=== PATIENT | female | born 1940 | race Caucasian/White ===

== ENCOUNTER 2017-07-27 13:03 | Emergency (ER) | payer OTHER ==
[2017-07-27 13:31] VITALS: BMI 25.8
[2017-07-27] MEDS ORDERED: SODIUM CHLORIDE 1,000 ML IV STA (14:16)
[2017-07-27 14:43] LABS: BASOPHIL 0.7 % (0-2.0); EOSINOPHIL 4.4 % (0-4.5); MCH 28.4 pg (25.7-33.7); MCHC 33.3 g/dl (32.0-36.0); MEAN CELL VOLUME 85.4 fl (80-96); MEAN PLT VOLUME 8.5 fl (7.5-11.1); NEUTROPHILS 67.7 % (42.8-82.8); PLATELET COUNT 200 K/MM3 (134-434); RDW 14.9 % (11.6-15.6); WHITE BLOOD COUNT 7.9 K/mm3 (4.0-10.0)
--- NOTE | 2017-07-27 14:57 | PDOC ---
History of Present Illness - General Chief Complaint: Diarrhea Stated Complaint: DIARRHEA Time Seen by Provider: 07/27/17 13:46 History Source: Patient Exam Limitations: No Limitations - History of Present Illness Travel History: No Initial Comments: 07/27/17 14:52 77-year-old female presents to the ED with complaints of diarrhea intermittently for the past week associated with slight abdominal cramping worsened with bowel movements. Patient denies fever, chills but states generalized weakness. Patient denies change in appetite, urinary complaints, abdominal distention or decreased flatulence. Patient states history of colitis and is followed by Dr. Kidd but did not contact him and decided come to the ER instead. Timing/Duration: reports: intermittent Quality: reports: mild, cramping Abdominal Pain Onset Location: reports: periumbilical Pain Radiation: reports: no radiation Activities at Onset: reports: none Aggravating Factors: improves with: Defecation Alleviating Factors: improves with: None Past History - Travel Traveled outside of the country in the last 30 days: No - Past Medical History Allergies/Adverse Reactions: Allergies Allergy/AdvReac Type Severity Reaction Status Date / Time No Known Allergies Allergy Verified 07/27/17 13:25 Home Medications: Ambulatory Orders Atorvastatin Ca [Lipitor] 10 mg PO HS #1 tablet 10/12/13 Ramipril [Altace] 10 mg PO DAILY #1 capsule 10/12/13 Aspirin [ASA -] 81 mg PO DAILY 06/25/16 Triamterene/Hydrochlorothiazid [Triamterene-Hctz 37.5-25 mg Tb] 1 each PO DAILY 06/26/16 Ciprofloxacin HCl [Cipro] 500 mg PO BID #14 tablet 07/27/17 Diltiazem HCl [Cartia Xt] 300 mg PO DAILY 07/27/17 Metronidazole [Flagyl -] 500 mg PO DAILY #21 tablet 07/27/17 Ranitidine HCl [Zantac] 150 mg PO BID 07/27/17 Anemia: No Asthma: No Cancer: No Cardiac Disorders: No CVA: No COPD: Yes CHF: No Dementia: No Diabetes: No GI Disorders: No Disorders: No HTN: Yes Hypercholesterolemia: Yes Liver Disease: No Seizures: No Thyroid Disease: No - Surgical History Abdominal Surgery: No Appendectomy: No Cardiac Surgery: No Cholecystectomy: No Lung Surgery: No Neurologic Surgery: No Orthopedic Surgery: No - Immunization History Immunization Up to Date: No - Psycho/Social/Smoking Cessation Hx Anxiety: No Suicidal Ideation: No Smoking Status: Yes Smoking History: Former smoker Have you smoked in the past 12 months: No Number of Cigarettes Smoked Daily: 0 If you are a former smoker, when did you quit?: 2013 Information on smoking cessation initiated: No 'Breaking Loose' booklet given: 10/11/13 Hx Alcohol Use: No Drug/Substance Use Hx: No Substance Use Type: None Hx Substance Use Treatment: No Patient Lives Alone: No Review of Systems - Review of Systems Able to Perform ROS?: No Constitutional: No: Symptoms Reported HEENTM: No: Symptoms Reported Respiratory: No: Symptoms reported Cardiac (ROS): No: Symptoms Reported ABD/GI: Yes: Diarrhea, Abdominal cramping. No: Nausea, Poor Appetite, Poor Fluid Intake, Vomiting : No: Symptoms Reported Musculoskeletal: No: Symptoms Reported Integumentary: No: Symptoms Reported Neurological: No: Symptoms reported Hematologic/Lymphatic: No: Symptoms Reported *Physical Exam - Vital Signs Last Vital Signs Temp Pulse Resp BP Pulse Ox 97.8 F 84 20 147/63 96 07/27/17 13:12 07/27/17 13:12 07/27/17 13:12 07/27/17 13:12 07/27/17 13:12 - Physical Exam General Appearance: Yes: Nourished, Appropriately Dressed. No: Apparent Distress Respiratory/Chest: positive: Lungs Clear, Normal Breath Sounds. negative: Respiratory Distress, Accessory Muscle Use Cardiovascular: positive: Regular Rhythm, Regular Rate. negative: Murmur Gastrointestinal/Abdominal: positive: Normal Bowel Sounds, Soft. negative: Distended, Guarding, Rebound, Tenderness, Mass Integumentary: positive: Normal Color, Warm, Moist Neurologic: positive: Motor Strength 5/5 (ambulatory) ED Treatment Course - LABORATORY CBC & Chemistry Diagram: 07/27/17 14:24 07/27/17 14:24 - RADIOLOGY Radiology Studies Ordered: Category Date Time Status ABDOMEN & PELVIS CT W/O CONTR [CT] Stat CT Scan 07/27/17 14:16 Ordered Medical Decision Making - Medical Decision Making 07/27/17 15:02 Patient history of colitis complaining of diarrhea and lower periumbilical pain for the past week. Patient examined had no acute findings. Patient normal vital signs here. Patient ordered for labs, IV fluids urine and abdominal CT with by mouth contrast. 07/27/17 17:23 Laboratory Tests 07/27/17 16:50 Urine Blood 1+ H Ur Leukocyte Esterase Trace 07/27/17 17:24 Laboratory Tests 07/27/17 07/27/17 07/27/17 14:24 14:24 14:24 WBC 7.9 Hgb 11.3 Hct 33.9 Plt Count 200 Neutrophils % 67.7 Monocytes % 10.4 H Sodium 138 Potassium 3.7 Chloride 102 Carbon Dioxide 26 Anion Gap 10 BUN 37 H D Creatinine 1.6 H D Random Glucose 93 D Lactic Acid 1.4 Magnesium 1.9 AST 14 L D ALT 19 Total Protein 7.2 D Albumin 3.6 D Lipase 400 H Ordered for gallbladder ultrasound. Patient had no right upper quad tenderness 07/27/17 18:[address] shows early acute sigmoid diverticulitis versus chronic diverticulitis. There is no abscess or free air seen. Patient will be ordered for Flagyl and Cipro. Patient's GI is Dr. Kidd. *DC/Admit/Observation/Transfer Diagnosis at time of Disposition: Diverticulitis - Discharge Dispostion Disposition: HOME - Prescriptions Prescriptions: Ciprofloxacin HCl [Cipro] 500 mg PO BID #14 tablet Metronidazole [Flagyl -] 500 mg PO DAILY #21 tablet - Referrals Referrals: Juan Kidd DO [Staff Physician] - Enrique Bui MD [Staff Physician] - Precious Coates MD [Primary Care Provider] - - Patient Instructions Printed Discharge Instructions: DI for Diverticulitis, DI for Aortic Aneurysm Additional Instructions: Please take medications as prescribed. You MUST follow up with Dr. Coates in the office THIS WEEK; I have spoken to him and he is expecting to see you. You also MUST make an appointment with Dr. Enrique Bui for further evaluation and management of your aortic aneurysm. You should also follow up with Dr. Kidd within the next few weeks. If you experience ANY severe abdominal pain, especially pain that radiates to your back; very high blood pressure; chest pain; shortness of breath, fever, chills, persistent vomiting, or any new or worsening symptoms, please return to the ER IMMEDIATELY.
[2017-07-27 15:07] LABS: ALBUMIN 3.6 g/dl (3.4-5.0); ALK PHOS 70 U/L (45-117); ANION GAP 10 (8-16); BILIRUBIN,TOTAL 0.8 mg/dL (0.2-1.0); CALCIUM 9.6 mg/dL (8.5-10.1); CO2 26 mmol/L (21-32); CREATININE 1.6 mg/dL (0.55-1.02); GLUCOSE,RANDOM 93 mg/dL (74-106); MAGNESIUM 1.9 mg/dL (1.8-2.4); SGOT/AST 14 U/L (15-37); SGPT/ALT 19 U/L (12-78); TOT PROT 7.2 g/dl (6.4-8.2)
[2017-07-27 17:12] LABS: URINE APPEARANCE CLEAR; URINE BILIRUBIN NEGATIVE (NEGATIVE); URINE BLOOD 1+ (NEGATIVE); URINE COLOR LTYELLOW; URINE GLUCOSE (UA) NEGATIVE (NEGATIVE); URINE KETONE NEGATIVE (NEGATIVE); URINE LEUK ESTERASE TRACE (NEGATIVE); URINE NITRITE NEGATIVE (NEGATIVE); URINE PROTEIN NEGATIVE (NEGATIVE); URINE UROBILINOGEN NEGATIVE mg/dL (0.2-1.0)
[2017-07-27 17:16] LABS: URINE BACTERIA RARE /hpf (NONE SEEN); URINE MUCUS RARE; URINE RBC <1 /hpf (0-3); URINE WBC 5 /hpf (3-5)
[2017-07-27 18:05] VITALS: PULSE 68
--- NOTE | 2017-07-27 19:03 | PDOC ---
*Physical Exam - Vital Signs Last Vital Signs Temp Pulse Resp BP Pulse Ox 98.4 F 68 18 138/61 95 07/27/17 18:04 07/27/17 18:04 07/27/17 18:04 07/27/17 18:04 07/27/17 18:04 - Physical Exam Comments: 07/27/17 18:57 Sign-out received from outgoing ER provider Adriana. Pt interviewed and examined. Ancillary studies reviewed. Awaiting ultrasound r/o sherice. Ultrasound results: Early acute sigmoid diverticulitis versus chronic diverticulitis. No abscess or free air. Appendix is normal. 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 Read by Noemi Rebolledo DO. Flagyl and Cipro rx sent to pharm. Discussed case with patient's PCP Dr. Coates; who recommends close follow up in office this week as well as close follow up with vascular MD Hao. Referral provided. Discussed findings with patient. Advised patient to f/u with PCP, Dr. Montesinos , and Dr. Bui. Patient verbalized understanding and agrees to plan. ED Treatment Course - LABORATORY CBC & Chemistry Diagram: 07/27/17 14:24 07/27/17 14:24 - ADDITIONAL ORDERS Additional order review: Laboratory Results 07/27/17 07/27/17 07/27/17 16:50 14:24 14:24 Sodium 138 Potassium 3.7 Chloride 102 Carbon Dioxide 26 Anion Gap 10 BUN 37 H D Creatinine 1.6 H D Creat Clearance w eGFR 31.26 Random Glucose 93 D Lactic Acid 1.4 Calcium 9.6 Magnesium 1.9 Total Bilirubin 0.8 D AST 14 L D ALT 19 Alkaline Phosphatase 70 D Total Protein 7.2 D Albumin 3.6 D Lipase 400 H Urine Color Ltyellow Urine Appearance Clear Urine pH 5.0 Urine Protein Negative Urine Glucose (UA) Negative Urine Ketones Negative Urine Blood 1+ H Urine Nitrite Negative Urine Bilirubin Negative Urine Urobilinogen Negative Ur Leukocyte Esterase Trace Urine RBC <1 Urine WBC 5 Ur Epithelial Cells Rare Urine Bacteria Rare Urine Mucus Rare 07/27/17 14:24 RBC 3.97 MCV 85.4 MCHC 33.3 RDW 14.9 MPV 8.5 Neutrophils % 67.7 Lymphocytes % 16.8 Monocytes % 10.4 H Eosinophils % 4.4 Basophils % 0.7 - Medications Given in the ED: ED Medications Discontinued Medications Generic Name Dose Route Start Last Admin Trade Name Tracy PRN Reason Stop Dose Admin Sodium Chloride 1,000 mls @ 1,000 mls/hr 07/27/17 14:16 07/27/17 14:23 Normal Saline - IV 07/27/17 15:15 1,000 mls/hr ASDIR STA Administration *DC/Admit/Observation/Transfer Diagnosis at time of Disposition: Diverticulitis Qualifiers: Diverticulitis site: large intestine Diverticulitis bleeding: without bleeding Diverticulitis complication: without perforation or abscess Qualified Code(s): K57.32 - Diverticulitis of large intestine without perforation or abscess without bleeding - Discharge Dispostion Disposition: HOME Condition at time of disposition: Stable Admit: No - Prescriptions Prescriptions: Ciprofloxacin HCl [Cipro] 500 mg PO BID #14 tablet Metronidazole [Flagyl -] 500 mg PO DAILY #21 tablet - Referrals Referrals: Precious Coates MD [Primary Care Provider] - Enrique Bui MD [Staff Physician] - Juan Montesinos DO [Staff Physician] - - Patient Instructions Printed Discharge Instructions: DI for Diverticulitis, DI for Aortic Aneurysm Additional Instructions: Please take medications as prescribed. You MUST follow up with Dr. Coates in the office THIS WEEK; I have spoken to him and he is expecting to see you. You also MUST make an appointment with Dr. Enrique Bui for further evaluation and management of your aortic aneurysm. You should also follow up with Dr. Montesinos within the next few weeks. If you experience ANY severe abdominal pain, especially pain that radiates to your back; very high blood pressure; chest pain; shortness of breath, fever, chills, persistent vomiting, or any new or worsening symptoms, please return to the ER IMMEDIATELY.
[2017-07-27 20:11] VITALS: BP 136/68; TEMP 98.2
--- NOTE | 2017-07-28 18:01 | EKG ---
Test Reason : Blood Pressure : / mmHG Vent. Rate : 067 BPM Atrial Rate : 067 BPM P-R Int : 178 ms QRS Dur : 076 ms QT Int : 426 ms P-R-T Axes : 110 005 053 degrees QTc Int : 450 ms POOR DATA QUALITY, INTERPRETATION MAY BE ADVERSELY AFFECTED SINUS RHYTHM WITH OCCASIONAL PREMATURE VENTRICULAR COMPLEXES NONSPECIFIC ST AND T WAVE ABNORMALITY ABNORMAL ECG WHEN COMPARED WITH ECG OF 05-MAY-2016 09:08, [place] INTERVAL HAS DECREASED REPEAT EKG IF CLINICALLY INDICATED Confirmed by RIZWAN LLANOS MD ([id number]) on 07/28/2017 6:00:36 PM Referred By: Confirmed By:RIZWAN LLANOS MD
== END 2017-07-27 20:11 | disposition home or self-care (01) ==
LOC: JER 13:03
PROC: 3E0337Z Introduction of Electrolytic and Water Balance Substance into Peripheral Vein, Percutaneous Approach (ICD-10-PCS; principal; 2017-07-27)
DX: K57.32 Diverticulitis of large intestine without perforation or abscess without bleeding (principal); I10 Essential (primary) hypertension; E78.00 Pure hypercholesterolemia, unspecified
CPT/HCPCS: 36415; 74176-TC; 76705-TC; 80053; 81003; 81015; 83605; 83690; 83735; 85025; 93005; 93010; 96360; 99283-25

== ENCOUNTER 2018-06-04 11:38 | Emergency (ER) | payer OTHER ==
[2018-06-04 11:58] VITALS: BP 159/67; PULSE 65; TEMP 98.4; BMI 27.6
--- NOTE | 2018-06-04 12:09 | PDOC ---
Attending Attestation - Resident Resident Name: Cyndie Dubose - ED Attending Attestation I have performed the following: I have examined & evaluated the patient, The case was reviewed & discussed with the resident, I agree w/resident's findings & plan, Exceptions are as noted - HPI HPI: 78 yo F history HTN presents with fall this morning while walking her dog. She is unsure of what caused the fall, stating she may have tripped on something. Denies weakness, LH, SOB, cp. She admits to recent RANDOLPH that is new onset. She is able to walk 1/2 a block before she has to stop walking. She has noted recent swelling in her legs B/L. No fever, cp, cough. - Physicial Exam PE: GENERAL: Awake, alert, and fully oriented, in no acute distress HEAD: No signs of trauma EYES: PERRLA, EOMI, sclera anicteric, conjunctiva clear ENT: Auricles normal inspection, hearing grossly normal, nares patent, oropharynx clear without exudates. Moist mucosa NECK: Normal ROM, supple, no lymphadenopathy, JVD, or masses LUNGS: Breath sounds equal, clear to auscultation bilaterally. No wheezes, and no crackles HEART: Regular rate and rhythm, normal S1 and S2, no murmurs, rubs or gallops ABDOMEN: Soft, nontender, normoactive bowel sounds. No guarding, no rebound. No masses EXTREMITIES: Normal range of motion. 2+ pitting edema BLE to level of mid-louise. No clubbing or cyanosis. No cords, erythema, or tenderness NEUROLOGICAL: Cranial nerves II through XII grossly intact. Normal speech, normal gait. SKIN: Warm, Dry, normal turgor, no rashes. +2x2 cm skin abrasion to R anterior knee. - Medical Decision Making 06/04/18 12:59 Pt with signs of poss new onset CHF. Will obtain labs including trop and BNP. XR of knee. Poss admission depending on findings.
--- NOTE | 2018-06-04 12:25 | PDOC ---
History of Present Illness - General Chief Complaint: Edema Stated Complaint: edema/fall Time Seen by Provider: 06/04/18 12:05 - History of Present Illness Initial Comments: 06/04/18 12:23 78 year old female with a PMH of HTN and GERD presents to the ED c/o fall and B/ L LE swelling. Patient notes that she was walking her dog earlier today when she fell. Denies any pre-fall chest pain, shortness of breath palpitation. Daughter @ bedside notes B/L LE extremity swelling of unknown duration. Endorses RANDOLPH, but notes besides walking her dog 1 block daily she is fairly sedentary. Notes she follow with Dr. Precious Coates for primary care and has been evaluated by Dr. Velez for "things in my ears." Patient denies chest pain, shortness of breath, fever/chills. Patient denies abdominal pain, nausea/vomiting, diarrhea/constipation. NKDA Surgical: Cardiac stent (2011), hysterectomy Social: prior 50+ year h/o smoking, quit three years previous, denies alcohol, denies recreational drugs PMD: Dr. Precious Coates Past History - Past Medical History Allergies/Adverse Reactions: Allergies Allergy/AdvReac Type Severity Reaction Status Date / Time No Known Allergies Allergy Verified 06/04/18 11:58 Home Medications: Ambulatory Orders Atorvastatin Ca [Lipitor] 10 mg PO HS #1 tablet 10/12/13 Ramipril [Altace] 10 mg PO DAILY #1 capsule 10/12/13 Aspirin [ASA -] 81 mg PO DAILY 06/25/16 Triamterene/Hydrochlorothiazid [Triamterene-Hctz 37.5-25 mg Tb] 1 each PO DAILY 06/26/16 Ciprofloxacin HCl [Cipro] 500 mg PO BID #14 tablet 07/27/17 Diltiazem HCl [Cartia Xt] 300 mg PO DAILY 07/27/17 Ranitidine HCl [Zantac] 150 mg PO BID 07/27/17 metroNIDAZOLE [Flagyl -] 500 mg PO DAILY #21 tablet 07/27/17 Furosemide [Lasix -] 40 mg PO DAILY #7 tablet 06/04/18 Anemia: No Asthma: No Cancer: No Cardiac Disorders: No CVA: No COPD: Yes CHF: No Dementia: No Diabetes: No GI Disorders: No Disorders: No HTN: Yes Hypercholesterolemia: Yes Liver Disease: No Psychiatric Problems: Yes (depression) Seizures: No Thyroid Disease: No - Surgical History Abdominal Surgery: No Appendectomy: No Cardiac Surgery: No Cholecystectomy: No Lung Surgery: No Neurologic Surgery: No Orthopedic Surgery: No - Immunization History Immunization Up to Date: No - Suicide/Smoking/Psychosocial Hx Smoking Status: Yes Smoking History: Former smoker Have you smoked in the past 12 months: No Number of Cigarettes Smoked Daily: 0 If you are a former smoker, when did you quit?: 2016 Information on smoking cessation initiated: No 'Breaking Loose' booklet given: 10/11/13 Hx Alcohol Use: No Drug/Substance Use Hx: No Substance Use Type: None Hx Substance Use Treatment: No Review of Systems - Review of Systems Constitutional: No: Chills, Fever HEENTM: No: Eye Pain, Double Vision Respiratory: Yes: Shortness of Breath. No: Cough, SOB with Exertion, Stridor, Wheezing, Productive cough Cardiac (ROS): No: Chest Pain, Lightheadedness, Palpitations, Syncope ABD/GI: No: Constipated, Diarrhea, Nausea, Vomiting : No: Burning, Dysuria *Physical Exam - Vital Signs Last Vital Signs Temp Pulse Resp BP Pulse Ox 98.4 F 65 18 159/67 96 06/04/18 11:54 06/04/18 11:54 06/04/18 11:54 06/04/18 11:54 06/04/18 11:54 - Physical Exam General Appearance: Yes: Nourished, Appropriately Dressed HEENT: positive: EOMI, KYMBERLY. negative: TM Bulging, TM Dull, TM Erythema Neck: positive: Trachea midline, Supple Respiratory/Chest: positive: Lungs Clear, Normal Breath Sounds Cardiovascular: positive: Regular Rhythm, S1, S2 Vascular Pulses: Dorsalis-Pedis (R): 2+, Doralis-Pedis (L): 2+ Gastrointestinal/Abdominal: positive: Normal Bowel Sounds, Soft Musculoskeletal: negative: CVA Tenderness (R), CVA Tenderness (L) Extremity: positive: Normal Capillary Refill, Normal Inspection, Other (R tibial tuberosity TTP; superficial R patellar abrasion, 2+ DP pulse) Integumentary: positive: Normal Color, Dry, Warm Neurologic: positive: Fully Oriented, Alert ED Treatment Course - LABORATORY CBC & Chemistry Diagram: 06/04/18 13:45 06/04/18 13:45 Medical Decision Making - Medical Decision Making 06/04/18 14:58 78 year old female presents following a fall, no head trauma/LOC as well as B/L LE edema. History notable for RANDOLPH Unclear if fall mechanical etiology. C/o R knee pain. Will obtain basic labs, EKG, Troponin x1 to r/o cardiac or metabolic etiology of and R knee, R tib/fib XR as well as BNP to evaluate for new onset HF. 06/04/18 15:16 EKG shows HR 64, NSR, no TWI/ANTOINETTE/STD - non ischemic ECG. Troponin (-) x1. CBC , CMP ending. XR shows no tibial or patellar fracture, expected osteoporotic changes. BNP 551 - no previous BNP in EMR. Will discuss case w/PMD, Dr. Benji Coates for likely new onset HF. 06/04/18 15:21 Case d/w Dr. Coates - agrees w/ OTD of Lasik and will see patient in office as previously scheduled for 06/08. Requests Lasik 40 mg QD as outpatient. Patient and patient's family counseled on POC and discharged home with return precautions and instruction to f/u with PMD. I discussed the physical exam findings, ancillary test results and final diagnoses with the patient. I answered all of the patient's questions. The patient was satisfied with the care received and felt comfortable with the discharge plan and treatment plan. The patient will return to the Emergency Department with any new, persistent or worsening symptoms. *DC/Admit/Observation/Transfer Diagnosis at time of Disposition: Swelling of both lower extremities, Fall - Discharge Dispostion Disposition: HOME Condition at time of disposition: Good - Prescriptions Prescriptions: Furosemide [Lasix -] 40 mg PO DAILY #7 tablet - Referrals Referrals: Precious Coates MD [Primary Care Provider] - - Patient Instructions Printed Discharge Instructions: How to Prevent Falls Additional Instructions: Please keep your previously scheduled appointment with Dr. Coates. We have called a prescription to your pharmacy. It will make you urinate more than usual. Please take the pill once daily. Dr. Coates may increase the dose or change the medication. Return to the Emergency Department for any new/worsening/concerning symptoms. - Post Discharge Activity
[2018-06-04] MEDS ORDERED: BACITRACIN 0.9 GM PACKET ONE (12:47)
[2018-06-04 13:57] LABS: BASO % 0.8 % (0-2.0); EOS % 8.7 % (0-4.5); HEMATOCRIT 34.7 % (32.4-45.2); HEMOGLOBIN 11.5 GM/dL (10.7-15.3); LYMPH % 17.3 % (8-40); MCH 29.1 pg (25.7-33.7); MCHC 33.2 g/dl (32.0-36.0); MEAN CELL VOLUME 87.5 fl (80-96); MEAN PLT VOLUME 9.8 fl (7.5-11.1); MONO % 6.6 % (3.8-10.2); NEUT % 66.6 % (42.8-82.8); PLATELET COUNT 198 K/MM3 (134-434); RBC 3.97 M/mm3 (3.60-5.2); RDW 15.1 % (11.6-15.6); WHITE BLOOD COUNT 6.6 K/mm3 (4.0-10.0)
[2018-06-04 14:30] LABS: ALBUMIN 3.8 g/dl (3.4-5.0); ALK PHOS 73 U/L (45-117); ANION GAP 9 (8-16); BILIRUBIN,TOTAL 0.5 mg/dL (0.2-1.0); BLOOD UREA NITROGEN 29 mg/dL (7-18); CALCIUM 9.7 mg/dL (8.5-10.1); CHLORIDE 102 mmol/L (98-107); CO2 28 mmol/L (21-32); CREATININE 1.4 mg/dL (0.55-1.02); GLUCOSE,RANDOM 99 mg/dL (74-106); POTASSIUM 4.4 mmol/L (3.5-5.1); SGOT/AST 21 U/L (15-37); SGPT/ALT 21 U/L (12-78); SODIUM 139 mmol/L (136-145); TOT PROT 7.4 g/dl (6.4-8.2)
[2018-06-04] MEDS ORDERED: FUROSEMIDE 40 MG/4 ML INJECTABLE VIAL IVPUSH ONE (15:20)
[2018-06-04] MEDS ORDERED: FUROSEMIDE 40 MG/4 ML INJECTABLE VIAL ONE (15:51)
--- NOTE | 2018-06-07 20:27 | EKG ---
Test Reason : Blood Pressure : / mmHG Vent. Rate : 064 BPM Atrial Rate : 064 BPM P-R Int : 170 ms QRS Dur : 078 ms QT Int : 430 ms P-R-T Axes : 062 005 059 degrees QTc Int : 443 ms NORMAL SINUS RHYTHM NORMAL ECG WHEN COMPARED WITH ECG OF 27-JUL-2017 15:00, PREMATURE VENTRICULAR COMPLEXES ARE NO LONGER PRESENT Confirmed by MD THADDEUS, TIMOTHY ([id number]) on 06/07/2018 8:26:58 PM Referred By: Confirmed By:TIMOTHY TRAVIS MD
== END 2018-06-04 15:59 | disposition home or self-care (01) ==
LOC: JER 11:38
PROC: 3E033GC Introduction of Other Therapeutic Substance into Peripheral Vein, Percutaneous Approach (ICD-10-PCS; principal; 2018-06-04)
DX: S80.211A Abrasion, right knee, initial encounter (principal); M79.89 Other specified soft tissue disorders; W18.39XA Other fall on same level, initial encounter; Y93.K1 Activity, walking an animal; Y92.480 Sidewalk as the place of occurrence of the external cause; Y99.8 Other external cause status; I10 Essential (primary) hypertension; K21.9 Gastro-esophageal reflux disease without esophagitis; F32.9 Major depressive disorder, single episode, unspecified; E78.00 Pure hypercholesterolemia, unspecified; Z95.5 Presence of coronary angioplasty implant and graft
CPT/HCPCS: 36415; 71045-TC-FY; 73562-TC-RT-FY; 73590-TC-RT-FY; 80053; 82550; 83880; 84484; 85025; 93005; 93010; 96374; 99282-25

== ENCOUNTER 2018-12-19 18:50 | Inpatient (IN) | payer OTHER ==
--- NOTE | 2018-12-19 19:22 | PDOC ---
Attending Attestation - HPI HPI: This patient is a 78 year old female, with PMHx of HTN, hypercholesterolemia, prolapsed uterus, hysterectomy, stent in leg, COPD, GERD, and diverticulosis, who presents with abdominal pain, nausea, vomit, and diarrhea. Patient has been seen in our ER a few timees for similar symptoms of abdominal pain, diarrhea, and vomit. Patient states that since 6pm she has had 2 episodes of emesis and 1 episodee of loose stools. Patient states that she ate chicken for dinner, rest of the family had the same thing. Around 6pm is when he symptoms began. She felt flushed, off, and pts daughter felt like she looked pale so she called EMS. She reports feeling fine earlier in the day and had a normal BM earlier in the day as well. Patient's daughter reports that she had a stress test that was questionable and is scheduled for an angiogram. PCP: Precious Coates 12/19/18 22:08 Patient had episode of bloody diarrhea while in ER. - Physicial Exam PE: GENERAL: Awake, alert, and fully oriented, in no acute distress Afebrile. LUNGS: Breath sounds equal, clear to auscultation bilaterally. No wheezes, and no crackles HEART: Regular rate and rhythm, normal S1 and S2, no murmurs, rubs or gallops ABDOMEN: Soft, left sided tenderness, normoactive bowel sounds. No guarding, no rebound. No masses EXTREMITIES: Normal range of motion,moving all extremities. Pitting edema L>R. No clubbing or cyanosis. No cords, erythema, or tenderness NEUROLOGICAL: Cranial nerves II through XII grossly intact. Normal speech, normal gait SKIN: Warm, Dry, no rashes or lesions noted. <Angelica Petersen - Last Filed: 12/19/18 22:08> - Resident Resident Name: Leatha Boateng - ED Attending Attestation I have performed the following: I have examined & evaluated the patient, The case was reviewed & discussed with the resident, I agree w/resident's findings & plan - Medical Decision Making 12/19/18 23:38 Patient Name: NAILA ANGLIN THIS IS A PRELIMINARY REPORT FROM [facility] DATE OF SERVICE: 2018-12-19 22:18:28 IMAGES: [id number] EXAM: ABDOMEN \T\ PELVIS CT W/O CONTR HISTORY: Rule out colitis COMPARISON: None. FINDINGS: Lung bases are clear. The visualized cardiac chambers are normal size and configuration. 1.8 cm left adrenal nodule is noted. There is mild bilateral renal scarring without stones or hydronephrosis. Normal unenhanced liver, gallbladder, pancreas, spleen , right adrenal gland . There is a moderate size hiatal hernia. There is mild colonic inflammation extending from the mid transverse colon to the rectum which may be due to infection or inflammatory bowel disease. The bowel obstruction, abscess or free air. There is a 4.2 cm fusiform suprarenal and infrarenal aortic aneurysm, without evidence of leak . There is no significant retroperitoneal lymphadenopathy. The appendix is normal. Status post hysterectomy. Urinary bladder is unremarkable. There is no pelvic free fluid. No discrete pelvic lymphadenopathy is identified. IMPRESSION: Mild colitis of the distal half of the colon could be due to infection inflammatory bowel disease. 4.2 cm suprarenal and infrarenal abdominal aortic aneurysm without evidence of leak . 1.8 cm left adrenal nodule is nonspecific, possibly an adenoma, which can be followed up with nonemergent MRI. Mild bilateral renal scarring 12/20/18 01:43 Admitted for colitis <Mihaela Onofre - Last Filed: 12/20/18 01:44>
[2018-12-19] MEDS ORDERED: SODIUM CHLORIDE 0.9% 500 ML INFUS.BAG IV ONE (19:30)
--- NOTE | 2018-12-19 19:34 | PDOC ---
History of Present Illness - General Chief Complaint: Pain Stated Complaint: ABDOMINAL PAIN Time Seen by Provider: 12/19/18 19:05 - History of Present Illness Initial Comments: Mary Kiran is a 78yo woman with a PMH of HTN, GERD, COPD, diverticulosis (1x diverticulitis) who presents with acute onset of vomiting, diarrhea, and abdominal pain that started 1 hour before arrival in the ED. Ms Kiran reports that she was feeling well all day until dinner tonight. She had a normal bowel movement in the morning and was eating and drinking normally. She ate dinner without difficulty and shortly afterwards began to feel ill. She had an episode of loose stool and two episodes of emesis after dinner, starting around 6pm tonight. She additionally reports suprapubic cramping that started at the same time; she states that it feels like she might have another episode of diarrhea. Ms Kiran reports that she has been feeling well otherwise. She denies any SOB , chest pain, diaphoresis, or dizziness along with the episode. She has not had any recent fevers/chills, no sick contacts, no unusual foods, and no recent travel. Her daughters, present in the ED, ate the same food for dinner and are feeling well. She does endorse feeling flushed when she vomited, and her daughter noted that she looked pale at the time. Currently, she reports mild abdominal discomfort but feels better than earlier. Past History - Past Medical History Allergies/Adverse Reactions: Allergies Allergy/AdvReac Type Severity Reaction Status Date / Time No Known Allergies Allergy Verified 12/19/18 19:00 Home Medications: Ambulatory Orders Atorvastatin Ca [Lipitor] 10 mg PO HS #1 tablet 10/12/13 Ramipril [Altace] 10 mg PO DAILY #1 capsule 10/12/13 Aspirin [ASA -] 81 mg PO DAILY 06/25/16 Triamterene/Hydrochlorothiazid [Triamterene-Hctz 37.5-25 mg Tb] 1 each PO DAILY 06/26/16 Ciprofloxacin HCl [Cipro] 500 mg PO BID #14 tablet 07/27/17 Diltiazem HCl [Cartia Xt] 300 mg PO DAILY 07/27/17 Ranitidine HCl [Zantac] 150 mg PO BID 07/27/17 metroNIDAZOLE [Flagyl -] 500 mg PO DAILY #21 tablet 07/27/17 Furosemide [Lasix -] 40 mg PO DAILY #7 tablet 06/04/18 Anemia: No Asthma: No Cancer: No Cardiac Disorders: No CVA: No COPD: Yes CHF: No Dementia: No Diabetes: No GI Disorders: No Disorders: No HTN: Yes Hypercholesterolemia: Yes Liver Disease: No Psychiatric Problems: Yes (depression) Seizures: No Thyroid Disease: No - Surgical History Abdominal Surgery: No Appendectomy: No Cardiac Surgery: No Cholecystectomy: No Lung Surgery: No Neurologic Surgery: No Orthopedic Surgery: No - Immunization History Immunization Up to Date: No - Suicide/Smoking/Psychosocial Hx Smoking Status: Yes Smoking History: Never smoked Have you smoked in the past 12 months: No Number of Cigarettes Smoked Daily: 0 If you are a former smoker, when did you quit?: 2016 Information on smoking cessation initiated: No 'Breaking Loose' booklet given: 10/11/13 Hx Alcohol Use: No Drug/Substance Use Hx: No Substance Use Type: None Hx Substance Use Treatment: No Review of Systems - Review of Systems Comments:: General: No fevers, no chills, no weight or appetite change, no malaise HEENT: No changes in vision, no changes in hearing, no congestion, no sore throat CV: No chest pain, no palpitations, no LE edema Pulm: +chronic SOB, +h/o COPD GI: See HPI : No frequency, no urgency, no dysuria Musc: No back pain, no joint swelling, no recent injury Skin: No rash, no lesions, no erythema Endo: No excessive thirst, no heat/cold intolerance Heme: No unusual bruising or bleeding, no swollen glands Neuro: No syncope, no numbness/tingling, no focal weakness Vasc: No claudication Psych: No recent change in mood, no SI or HI *Physical Exam - Vital Signs Last Vital Signs Temp Pulse Resp BP Pulse Ox 97.6 F 60 18 122/55 L 96 12/19/18 18:55 12/19/18 18:55 12/19/18 18:55 12/19/18 18:55 12/19/18 18:55 - Physical Exam Comments: General: Comfortable, no acute distress HEENT: PERRL, EOMI, MMM, voice normal, normal neck ROM, no LAD Cards: RRR, no murmur appreciated Pulm: Comfortable on room air, mild diffuse wheezing b/l Abd: Soft, nondistended. Mild suprapubic tenderness. Ext: Atraumatic. 1+ b/l pitting LE edema. ROM intact. Strength 5/5 and equal bilaterally Vasc: Extremities WWP. Skin: Normal color, no rashes or lesions Neuro: A&Ox3, CN grossly intact, normal speech, motor/sensory grossly intact and symmetric Psych: Mood appropriate to situation Moderate Sedation - Procedure Monitoring Vital Signs: Procedure Monitoring Vital Signs Temperature 97.6 F 12/19/18 18:55 Pulse Rate 60 12/19/18 18:55 Respiratory Rate 18 12/19/18 18:55 Blood Pressure 122/55 L 12/19/18 18:55 O2 Sat by Pulse Oximetry (%) 96 12/19/18 18:55 ED Treatment Course - LABORATORY CBC & Chemistry Diagram: 12/19/18 19:56 12/19/18 19:56 Medical Decision Making - Medical Decision Making 12/19/18 19:33 Mary Kiran is a 78yo woman with a PMH of HTN, GERD, COPD, diverticulosis (1x diverticulitis) who presents with acute onset of suprapubic cramping, one episode of loose stool, and two episodes of vomiting starting at 6pm tonight. She was feeling well earlier in the day and started feeling ill after eating dinner. - Most likely viral, gastritis due to GERD, possibly influenza but less likely given lack of fever, sick contacts, respiratory symptoms. Given age and HTN, COPD should rule out ACS as a cause of vomiting and abdominal pain, though less likely as she has no chest pain or SOB. h/o biliary sludge, but no RUQ pain so unlikely - CBC, CMP, EKG, influenza. - 1L NS and famotidine for symptoms - Duoneb ordered for wheezing noted on exam, pt reports not using home inhaler 12/19/18 20:31 - Labs reviewed. Notable for slight leukocytosis to 12, could be inflammatory secondary to vomiting or due to infection - Flu negative - BUN and Cr elevated but at baseline - Following exam by Dr Onofre, CT abd/pelvis with oral contrast ordered. No IV contrast due to kidney function 12/19/18 22:08 - Pt having multiple episodes of watery diarrhea w/ urgency, unable to reach the bathroom. Stool blood-tinged. - Additional vomiting. - Reports that low abdominal pain is increased, now 07/02. - IV acetaminophen for pain, IV zofran for nausea - Will most likely need admission given lower GI bleed 12/19/18 22:52 - CT abd/pelvis reviewed. Sigmoid divertics w/ bowel wall thickening. Radiology read pending - Microblog sent to hospitalist team for admission for colitis v diverticulitis , lower GI bleed 12/19/18 23:26 - Hospitalist team at bedside. Discussed with Dr Onofre. Leatha Boateng PGY1 *DC/Admit/Observation/Transfer Diagnosis at time of Disposition: Diarrhea, Rectal bleed, Abdominal pain - Discharge Dispostion Decision to Admit order: Yes - Referrals Referrals: Precious Coates MD [Primary Care Provider] - - Patient Instructions - Post Discharge Activity
[2018-12-19] MEDS ORDERED: FAMOTIDINE 20 MG/50 ML IVPB 20 MG/50 ML MG IVPB ONE ×2 (19:55→20:27)
[2018-12-19 20:04] LABS: BASO % 0.5 % (0-2.0); EOS % 1.3 % (0-4.5); HEMATOCRIT 34.8 % (32.4-45.2); HEMOGLOBIN 12.2 GM/dL (10.7-15.3); LYMPH % 7.2 % (8-40); MCH 31.2 pg (25.7-33.7); MEAN CELL VOLUME 89.2 fl (80-96); MEAN PLT VOLUME 8.4 fl (7.5-11.1); MONO % 10.9 % (3.8-10.2); NEUT % 80.1 % (42.8-82.8); PLATELET COUNT 174 K/MM3 (134-434); RDW 14.8 % (11.6-15.6); WHITE BLOOD COUNT 12.2 K/mm3 (4.0-10.0)
[2018-12-19] MEDS ORDERED: ALBUTEROL SO4 2.5/IPRATROPIUM 0.5 INH SOL 3 ML VIAL.NEB. NEB ONE ×2 (20:12→20:27)
[2018-12-19 20:40] LABS: ALBUMIN 3.8 g/dl (3.4-5.0); ALK PHOS 143 U/L (45-117); ANION GAP 9 MMOL/L (8-16); BILIRUBIN,TOTAL 0.6 mg/dL (0.2-1); BLOOD UREA NITROGEN 32 mg/dL (7-18); CALCIUM 8.9 mg/dL (8.5-10.1); CHLORIDE 104 mmol/L (98-107); CO2 27 mmol/L (21-32); CREATININE 1.7 mg/dL (0.55-1.3); GLUCOSE,RANDOM 123 mg/dL (74-106); POTASSIUM 3.8 mmol/L (3.5-5.1); SGOT/AST 21 U/L (15-37); SGPT/ALT 19 U/L (13-61); SODIUM 140 mmol/L (136-145); TOT PROT 7.2 g/dl (6.4-8.2)
[2018-12-19] MEDS ORDERED: ONDANSETRON 4 MG/2 ML VIAL IVPUSH ONE (21:56)
[2018-12-19] MEDS ORDERED: ACETAMINOPHEN 1000 MG/100 ML VIAL (NON FORMULARY) IVPB ONE (21:59)
[2018-12-19] MEDS ORDERED: ACETAMINOPHEN INJECTION 100 ML IVPB ONE (22:00)
[2018-12-19] MEDS ORDERED: ONDANSETRON 4 MG/2 ML VIAL ONE (22:00)
--- NOTE | 2018-12-19 23:40 | PN ---
Teaching Attending Note Name of Resident: Filomena Trinidad ATTENDING PHYSICIAN STATEMENT I saw and evaluated the patient. I reviewed the resident's note and discussed the case with the resident. I agree with the resident's findings and plan as documented. SUBJECTIVE: Seen and examined with resident; please refer to their note for further historical details. Briefly, at 6PM ate dinner; 30 mins after nausea, vomitting , and some diarrhea (not blood tinged at home but multiple episodes of blood tinged here). Denies sick contacts, nobody else at home with sx. She had colonoscopy several years ago but doesn't recall who with. This feels similar to her prior episode of colitis. Sees cardiology regularly and has a planned angiogram 01/04 and she is unsure why exactly but she believes it is because she needs a stent. 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 She is a somewhat poor historian but is keenly responsive and AAOx3. Has had multiple episodes of diarrhea since she came to the hospital. She is not tachycardic. Rectal exam done in the ER shows no blood on the glove, no hemorrhoids, etc. Thank you Dr. Coates for allowing us to take part in the ongoing care of your patient. PMH (HTN, COPD, GERD, HLD, prior history of colitis, quit smoking 40 years ago) ; PSH negative for prior abdominal sgys Medications (lipitor, ramipril, triamterine/hctz, zantac, ASA 81mg PO QD) reviewed Social history denies current EtOH or tobacco abuse FH asked and noncontributory OBJECTIVE: VS, labs, imaging reviewed NAD, AAO, resting comfortably in bed Mildly diffusely tender but nondistended, nontympanic RRR s1/2 no mgr CN2-12 wnl, no fnd Normal mood, appropriate affect Labs show mild leukocytosis to 12-range with chronically elevated Cr on CMP. LFTs not Prelim CT reviewed; endorses colitis ASSESSMENT AND PLAN: Patient presents with several hours of abdominal pain with bloody diarrhea similar to her last episode of colitis; she has a history of diverticulosis. Admitting to the medicine service and monitoring on the floor with GI consult in AM. 1) Bloody Diarrhea -Likely 2/2 infectious etiology (consider causes of bloody diarrhea) but of course must also consider potential for primary LGIB; less likely UGIB with rapid transit given hemodynamics. She doesn't recall her GI. -Call GI in AM for consultation; followup final CT report (prelim with colitis) . Trend CBC q8hx 24hrs -IV BID protonix (likely can stop once stability continually ascertained) and check cdiff and lactoferrin/stool WBC. Monitor for BRBPR. No melena. Gentle IVF overnight and stop completely when ascertained she is taking enough in PO. -IV levaquin/flagyl given nausea. Change to PO when tolerating. 2) Suspected CAD -Hold ASA; resume when clinically appropriate -Speak to her family to get further information regarding the OP cardiology planned procedure -No cardiac sx at this juncture 3) Elevated Alk phos -Trend CMP, check GGT. If elevated consider nonemergent RUQ US. 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 No respiratory complaints. 11) Elevated BNP -Due to CKD likely; monitor respiratory sx. Gentle hydration overnight only and DC with encouragement for PO hydration. FENA -LR@42cc/hr -PRN replete -NPO -As tolerated
--- NOTE | 2018-12-20 01:22 | HP ---
CHIEF COMPLAINT: nausea/vomiting/diarrhea PCP: HISTORY OF PRESENT ILLNESS: 78 y/o female with PMH of HTN. GERD, COPD, HLD, previous episode of colitis/ diverticulitis presents to the ED with an acute onset of vomiting/diarrhea that started this evening. patient states she was in perfectly good health, ate chicken and mashed potatoes for dinner aroynd 6 pm and then around 20 mins later she started having diarrhea and an episode of vomiting at home so she came to the ED. she states this feels very similar to her last episode of colitis years back. she had a colonoscopy around 2 years ago, which was normal. she denies any recent travel or any sick contacts. 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 in the ED she had multiple episodes of blood-tinged diarrhea. ER course was notable for: (1) wbc 12.2 (2)given levaquin/flagyl (3)ct shows bowel wall thickening with colitis Recent Travel: none PAST MEDICAL HISTORY: see above PAST SURGICAL HISTORY: denies Social History: Smoking:former smoker; quit 40 years ago (smoked for 20 years) Alcohol:denies Drugs: denies Family History: DM on mothers side Allergies No Known Allergies Allergy (Verified 12/19/18 19:00) HOME MEDICATIONS: Home Medications Medication Instructions Recorded Atorvastatin Ca [Lipitor] 10 mg PO HS #1 tablet 10/12/13 Ramipril [Altace] 10 mg PO DAILY #1 capsule 10/12/13 Aspirin [ASA -] 81 mg PO DAILY 06/25/16 Triamterene/Hydrochlorothiazid 1 each PO DAILY 06/26/16 [Triamterene-Hctz 37.5-25 mg Tb] Ciprofloxacin HCl [Cipro] 500 mg PO BID #14 tablet 07/27/17 Diltiazem HCl [Cartia Xt] 300 mg PO DAILY 07/27/17 Ranitidine HCl [Zantac] 150 mg PO BID 07/27/17 metroNIDAZOLE [Flagyl -] 500 mg PO DAILY #21 tablet 07/27/17 Furosemide [Lasix -] 40 mg PO DAILY #7 tablet 06/04/18 REVIEW OF SYSTEMS CONSTITUTIONAL: Absent: fever, chills, diaphoresis, generalized weakness, malaise, loss of appetite, weight change HEENT: Absent: rhinorrhea, nasal congestion, throat pain, throat swelling, difficulty swallowing, mouth swelling, ear pain, eye pain, visual changes CARDIOVASCULAR: Absent: chest pain, syncope, palpitations, irregular heart rate, lightheadedness , peripheral edema RESPIRATORY: Absent: cough, shortness of breath, dyspnea with exertion, orthopnea, wheezing, stridor, hemoptysis GASTROINTESTINAL: Present: nausea, vomiting, diarrhea Absent: abdominal pain, abdominal distension , constipation, melena, hematochezia GENITOURINARY: Absent: dysuria, frequency, urgency, hesitancy, hematuria, flank pain, genital pain MUSCULOSKELETAL: Absent: myalgia, arthralgia, joint swelling, back pain, neck pain SKIN: Absent: rash, itching, pallor HEMATOLOGIC/IMMUNOLOGIC: Absent: easy bleeding, easy bruising, lymphadenopathy, frequent infections ENDOCRINE: Absent: unexplained weight gain, unexplained weight loss, heat intolerance, cold intolerance NEUROLOGIC: Absent: headache, focal weakness or paresthesias, dizziness, unsteady gait, seizure, mental status changes, bladder or bowel incontinence PSYCHIATRIC: Absent: anxiety, depression, suicidal or homicidal ideation, hallucinations. PHYSICAL EXAMINATION Vital Signs - 24 hr 12/19/18 18:55 Temperature 97.6 F Pulse Rate 60 Respiratory 18 Rate Blood Pressure 122/55 L O2 Sat by Pulse 96 Oximetry (%) GENERAL: Awake, alert, and fully oriented, in no acute distress. EYES:no scleral icterus; EOMI; PEERLA. NECK: no JVD, no lymphadenopathy. LUNGS:CTA B/L; no rales, rhonchi or wheezing HEART: Regular rate and rhythm, normal S1 and S2 without murmur, rub or gallop. ABDOMEN: Soft, slight suprapubuic tenderness; no rebound/guarding +BS in all 4 quadrants RECTAL: no external fissures seen; no masses palpated; no hemorrhoids +loose brown stool in rectal vault MUSCULOSKELETAL: Normal range of motion at all joints. No bony deformities or tenderness. No CVA tenderness. EXTREMITIES: warm; well-perfused; 1+ edema B/L PSYCHIATRIC: Cooperative. Good eye contact. Appropriate mood and affect. SKIN: Warm, dry, normal turgor, no rashes or lesions noted, normal capillary refill. Laboratory Results - last 24 hr 12/19/18 12/19/18 12/19/18 19:56 19:56 19:56 WBC 12.2 H RBC 3.90 Hgb 12.2 Hct 34.8 MCV 89.2 MCH 31.2 MCHC 35.0 RDW 14.8 Plt Count 174 MPV 8.4 Absolute Neuts (auto) 9.8 H Neutrophils % 80.1 D Lymphocytes % 7.2 L D Monocytes % 10.9 H Eosinophils % 1.3 D Basophils % 0.5 Nucleated RBC % 0 Sodium 140 Potassium 3.8 Chloride 104 Carbon Dioxide 27 Anion Gap 9 BUN 32 H Creatinine 1.7 H Creat Clearance w eGFR 29.07 Random Glucose 123 H Calcium 8.9 Total Bilirubin 0.6 AST 21 ALT 19 Alkaline Phosphatase 143 H B-Natriuretic Peptide 996.2 H Total Protein 7.2 Albumin 3.8 Stool Occult Blood Influenza A (Rapid) Influenza B (Rapid) 12/19/18 12/19/18 20:06 23:37 WBC RBC Hgb Hct MCV MCH MCHC RDW Plt Count MPV Absolute Neuts (auto) Neutrophils % Lymphocytes % Monocytes % Eosinophils % Basophils % Nucleated RBC % Sodium Potassium Chloride Carbon Dioxide Anion Gap BUN Creatinine Creat Clearance w eGFR Random Glucose Calcium Total Bilirubin AST ALT Alkaline Phosphatase B-Natriuretic Peptide Total Protein Albumin Stool Occult Blood Negative Influenza A (Rapid) Negative Influenza B (Rapid) Negative ASSESSMENT/PLAN: 78 y.o female with PMH of HTN, GERD, COPD, colitis presents to the ED with an acute onset of nausea/vomiting/diarrhea likely due to colitis #Colitis with associated blood-tinged diarrhea -c/w levaquin and flagyl -IV protonix BID -NPO for the time being -monitor H/H q8H -GI consulted -NS@42mls/hr #CAD -holding ASA until bleeding stops -attempt to get info about outpatient cardiology' #HTN -holding HTN meds for now -reassess BP in AM #HLD -c/w lipitor 10 daily #COPD -duonebs PRN #CKD -Cr is at baseline F/E/N NS @42mls/hr monitor electrolytes NPO for now DVT PPX: scds Problem List - Problem (1) Abdominal pain Code(s): R10.9 - UNSPECIFIED ABDOMINAL PAIN (2) Diarrhea Code(s): R19.7 - DIARRHEA, UNSPECIFIED (3) Hypertension Code(s): I10 - ESSENTIAL (PRIMARY) HYPERTENSION Visit type - Emergency Visit Emergency Visit: Yes ED Registration Date: 12/19/18 Care time: The patient presented to the Emergency Department on the above date and was hospitalized for further evaluation of their emergent condition. - New Patient This patient is new to me today: Yes Date on this admission: 12/20/18 - Critical Care Critical Care patient: No
[2018-12-20] MEDS ORDERED: ACETAMINOPHEN 500 MG TABLET (FP) PO PRN (01:27)
[2018-12-20] MEDS: PANTOPRAZOLE SODIUM 40 MG VIAL IVPUSH SCH ×2 (01:35→10:12)
[2018-12-20] MEDS: SODIUM CHLORIDE 1,000 ML IV SCH ×2 (01:35→20:15)
[2018-12-20 07:02] LABS: HEMATOCRIT 29.7 % (32.4-45.2); HEMOGLOBIN 10.6 GM/dL (10.7-15.3); MCH 31.2 pg (25.7-33.7); MCHC 35.6 g/dl (32.0-36.0); MEAN CELL VOLUME 87.6 fl (80-96); MEAN PLT VOLUME 8.8 fl (7.5-11.1); PLATELET COUNT 154 K/MM3 (134-434); RBC 3.39 M/mm3 (3.60-5.2); RDW 14.4 % (11.6-15.6); WHITE BLOOD COUNT 8.8 K/mm3 (4.0-10.0)
[2018-12-20 07:51] LABS: ALBUMIN 3.3 g/dl (3.4-5.0); ALK PHOS 117 U/L (45-117); ANION GAP 8 MMOL/L (8-16); BILIRUBIN,TOTAL 0.5 mg/dL (0.2-1); BLOOD UREA NITROGEN 28 mg/dL (7-18); CALCIUM 8.4 mg/dL (8.5-10.1); CHLORIDE 104 mmol/L (98-107); CO2 25 mmol/L (21-32); CREATININE 1.5 mg/dL (0.55-1.3); GLUCOSE,RANDOM 108 mg/dL (74-106); POTASSIUM 3.8 mmol/L (3.5-5.1); SGOT/AST 17 U/L (15-37); SGPT/ALT 15 U/L (13-61); SODIUM 138 mmol/L (136-145); TOT PROT 6.4 g/dl (6.4-8.2)
[2018-12-20] MEDS ORDERED: PANTOPRAZOLE SODIUM 40 MG/100 ML BAG IVPB ONE (10:12)
--- NOTE | 2018-12-20 10:48 | EKG ---
Test Reason : Blood Pressure : / mmHG Vent. Rate : 066 BPM Atrial Rate : 066 BPM P-R Int : 168 ms QRS Dur : 078 ms QT Int : 522 ms P-R-T Axes : 035 -04 019 degrees QTc Int : 547 ms NORMAL SINUS RHYTHM NONSPECIFIC T WAVE ABNORMALITY ABNORMAL ECG WHEN COMPARED WITH ECG OF 04-JUN-2018 13:14, T WAVE VARIATION Confirmed by JEROD ANTONY MD ([id number]) on 12/20/2018 10:47:57 AM Referred By: Confirmed By:JEROD ANTONY MD
[2018-12-20 10:50] LABS: URINE APPEARANCE CLEAR; URINE BILIRUBIN NEGATIVE (<2.0 mg/dL); URINE COLOR LTYELLOW; URINE GLUCOSE (UA) NEGATIVE (NEGATIVE); URINE KETONE NEGATIVE (NEGATIVE); URINE LEUK ESTERASE TRACE (NEGATIVE); URINE NITRITE NEGATIVE (NEGATIVE); URINE PROTEIN NEGATIVE (NEGATIVE); URINE UROBILINOGEN NEGATIVE mg/dL (0.2-1.0)
[2018-12-20 11:26] LABS: EPI CELLS RARE /HPF (FEW); URINE BACTERIA RARE /hpf (NONE SEEN); URINE MUCUS RARE
--- NOTE | 2018-12-20 12:15 | PN ---
Progress Note, Physician History of Present Illness: pt seen/ examined chart reviewed comfortable feels better no distress Vital Signs Temp 98.4 F 12/20/18 08:05 Pulse 86 12/20/18 10:45 Resp 18 12/20/18 10:45 BP 162/64 12/20/18 10:45 Pulse Ox 96 12/20/18 10:45 Intake & Output 12/19/18 12/20/18 12/20/18 23:59 11:59 23:59 Weight 170 lb Other: Height 5 ft 7 in Body Mass Index (BMI) 26.6 Weight Measurement Method Est/Stated by Patient Active Medications Acetaminophen (Tylenol -) 500 mg PO Q6H PRN PRN Reason: PAIN Atorvastatin Calcium (Lipitor -) 10 mg PO HS YVETTE Heparin Sodium (Porcine) (Heparin -) 5,000 unit SQ BID YVETTE Sodium Chloride (Normal Saline -) 1,000 mls @ 42 mls/hr IV ASDIR YVETTE Last Admin: 12/20/18 01:35 Dose: 42 mls/hr Metronidazole (Flagyl 250mg Premixed Ivpb -) 250 mg in 50 mls @ 50 mls/hr IVPB Q8H-IV YVETTE Last Admin: 12/20/18 06:01 Dose: 50 mls/hr Levofloxacin (Levaquin 250 Mg Premixed Ivpb -) 250 mg in 50 mls @ 50 mls/hr IVPB DAILY [facility]; Protocol Last Admin: 12/20/18 10:13 Dose: 50 mls/hr Pantoprazole Sodium (Protonix Iv) 40 mg IVPUSH DAILY [facility] CBC, BMP 12/20/18 05:30 12/20/18 05:30 ct scan - reviewed - Current Medication List Current Medications: Active Medications Acetaminophen (Tylenol -) 500 mg PO Q6H PRN PRN Reason: PAIN Atorvastatin Calcium (Lipitor -) 10 mg PO HS YVETTE Sodium Chloride (Normal Saline -) 1,000 mls @ 42 mls/hr IV ASDIR YVETTE Last Admin: 12/20/18 01:35 Dose: 42 mls/hr Metronidazole (Flagyl 250mg Premixed Ivpb -) 250 mg in 50 mls @ 50 mls/hr IVPB Q8H-IV YVETTE Last Admin: 12/20/18 06:01 Dose: 50 mls/hr Levofloxacin (Levaquin 250 Mg Premixed Ivpb -) 250 mg in 50 mls @ 50 mls/hr IVPB DAILY [facility]; Protocol Last Admin: 12/20/18 10:13 Dose: 50 mls/hr Pantoprazole Sodium (Protonix Iv) 40 mg IVPUSH DAILY [facility] - Objective Vital Signs: Vital Signs Temperature 98.4 F 12/20/18 08:05 Pulse Rate 86 12/20/18 10:45 Respiratory Rate 18 12/20/18 10:45 Blood Pressure 162/64 12/20/18 10:45 O2 Sat by Pulse Oximetry (%) 96 12/20/18 10:45 Constitutional: Yes: No Distress, Calm Eyes: Yes: Conjunctiva Clear Neck: Yes: Supple Cardiovascular: Yes: Regular Rate and Rhythm Respiratory: Yes: CTA Bilaterally Gastrointestinal: Yes: Soft Edema: No Labs: CBC, BMP 12/20/18 05:30 12/20/18 05:30 Problem List - Problems (1) Abdominal pain Code(s): R10.9 - UNSPECIFIED ABDOMINAL PAIN (2) Diverticulitis Code(s): K57.92 - DVTRCLI OF INTEST, PART UNSP, W/O PERF OR ABSCESS W/O BLEED Qualifiers: Diverticulitis site: large intestine Diverticulitis bleeding: without bleeding Diverticulitis complication: without perforation or abscess Qualified Code(s): K57.32 - Diverticulitis of large intestine without perforation or abscess without bleeding Assessment/Plan Clinically stable Mild diverticulits ? dont look like ischemic abx mild hydration monitor labs dvt prophylaxis gi eval will follow discussed with nursing staff also
--- NOTE | 2018-12-20 13:14 | CON.GI ---
Consult Consult Specialty:: GI Referred by:: ED Reason for Consultation:: abdominal pain - History of Present Illness Chief Complaint: abdominal pain, vomiting, diarrhea History of Present Illness: 78F with h/o HTN, GERD, COPD, HL, h/o colitis in 2016, presenting for evaluation of abdominal pain/diarrhea. She reports her symptoms are similar to what brought her in in 2016. After eating chicken, mashed potatoes, stuffing yesterday, began to have suprapubic abdominal pain, vomited x1, and had nonbloody diarrhea. Was told she was pale, felt like she might pass out but didn 't. This then repeated several times, prompting to come to ED for evaluation. Patient reports now when she has a bm, it is all blood and minimal or no stool + cramping abdominal pain persists. Admitted for similar complaints in 2016, had colonoscopy two months after hospitalization with ? descending colon scarring, possible healed ischemic colitis, biopsies unremarkable. - Past Medical History Cardio/Vascular: Yes: HTN, Hyperlipdemia, Other (PVD) Pulmonary: Yes: COPD Additional Medical History: nasal polyps - Past Surgical History Past Surgical History: Yes: Hysterectomy - Alcohol/Substance Use Hx Alcohol Use: No - Smoking History Smoking history: Never smoked Have you smoked in the past 12 months: No Aproximately how many cigarettes per day: 0 If you are a former smoker, when did you quit?: 2016 Home Medications - Allergies Allergies/Adverse Reactions: Allergies Allergy/AdvReac Type Severity Reaction Status Date / Time No Known Allergies Allergy Verified 12/19/18 19:00 - Home Medications Home Medications: Ambulatory Orders Atorvastatin Ca [Lipitor] 10 mg PO HS #1 tablet 10/12/13 Ramipril [Altace] 10 mg PO DAILY #1 capsule 10/12/13 Aspirin [ASA -] 81 mg PO DAILY 06/25/16 Triamterene/Hydrochlorothiazid [Triamterene-Hctz 37.5-25 mg Tb] 1 each PO DAILY 06/26/16 Ciprofloxacin HCl [Cipro] 500 mg PO BID #14 tablet 07/27/17 Diltiazem HCl [Cartia Xt] 300 mg PO DAILY 07/27/17 Ranitidine HCl [Zantac] 150 mg PO BID 07/27/17 metroNIDAZOLE [Flagyl -] 500 mg PO DAILY #21 tablet 07/27/17 Furosemide [Lasix -] 40 mg PO DAILY #7 tablet 06/04/18 Review of Systems - Review of Systems Constitutional: reports: No Symptoms Eyes: reports: No Symptoms HENT: reports: No Symptoms Neck: reports: No Symptoms Cardiovascular: reports: No Symptoms Respiratory: reports: No Symptoms Gastrointestinal: reports: Abdominal Pain, Diarrhea, Other (hematochezia) Genitourinary: reports: No Symptoms Musculoskeletal: reports: No Symptoms Neurological: reports: No Symptoms Hematology/Lymphatic: reports: No Symptoms Psychiatric: reports: No Symptoms Physical Exam-GI Vital Signs: Vital Signs Temperature 98.4 F 12/20/18 08:05 Pulse Rate 86 12/20/18 10:45 Respiratory Rate 18 12/20/18 10:45 Blood Pressure 162/64 12/20/18 10:45 O2 Sat by Pulse Oximetry (%) 96 12/20/18 10:45 Constitutional: Yes: Well Nourished, No Distress, Calm Eyes: Yes: WNL, Conjunctiva Clear Cardiovascular: Yes: Regular Rate and Rhythm Respiratory: Yes: Regular, CTA Bilaterally Gastrointestinal Inspection: Yes: WNL ...Palpate: Yes: Soft, Tenderness (ttp epigastrium, LUQ, LLQ, minimally suprapubic, without guarding), Other ...Rectal Exam: Yes: Deferred Edema: No Neurological: Yes: Alert, Oriented Labs: CBC, BMP 12/20/18 05:30 12/20/18 05:30 Imaging - Results Cat Scan: Report Reviewed (CT with thickening of the colon from transverse to rectum) Assessment/Plan Colitis - differential includes ischemic (most likely) vs infectious Ischemic colitis favored given pt description and likely h/o ischemic colitis [address] findings, although ischemic colitis classically doesn't involve the rectum; can rarely Unclear precipitant for infectious and no systemic signs/sx If it is ischemic colitis, per the ACG guidelines, it is mild and patient should improve clinically Recommend: D/C antibiotics IVF hydration Monitor hgb and WBC count Check stool cx and C. diff If stool studies negative and patient does not clinically in an appropriate timeframe, can consider flex sig for further assessment
[2018-12-20 13:21] VITALS: BMI 26.2
[2018-12-20] MEDS: ATORVASTATIN CA 10 MG TABLET (FP) PO SCH (22:14)
[2018-12-20] MEDS: HEPARIN NA (PORCINE) 5,000 UNITS/ML 1ML VIAL SQ SCH (22:15)
[2018-12-21 07:53] LABS: BASO % 0.4 % (0-2.0); EOS % 2.3 % (0-4.5); HEMATOCRIT 30.9 % (32.4-45.2); HEMOGLOBIN 10.8 GM/dL (10.7-15.3); LYMPH % 9.9 % (8-40); MCH 30.7 pg (25.7-33.7); MCHC 34.8 g/dl (32.0-36.0); MEAN CELL VOLUME 88.2 fl (80-96); MEAN PLT VOLUME 8.6 fl (7.5-11.1); MONO % 8.6 % (3.8-10.2); NEUT % 78.8 % (42.8-82.8); PLATELET COUNT 144 K/MM3 (134-434); RBC 3.51 M/mm3 (3.60-5.2); RDW 14.8 % (11.6-15.6); WHITE BLOOD COUNT 10.6 K/mm3 (4.0-10.0)
[2018-12-21 08:20] LABS: ALBUMIN 2.9 g/dl (3.4-5.0); ALK PHOS 89 U/L (45-117); ANION GAP 6 MMOL/L (8-16); BLOOD UREA NITROGEN 16 mg/dL (7-18); CALCIUM 8.2 mg/dL (8.5-10.1); CHLORIDE 107 mmol/L (98-107); CO2 27 mmol/L (21-32); CREATININE 1.2 mg/dL (0.55-1.3); GLUCOSE,RANDOM 83 mg/dL (74-106); POTASSIUM 3.5 mmol/L (3.5-5.1); SGOT/AST 13 U/L (15-37); SGPT/ALT 14 U/L (13-61); SODIUM 140 mmol/L (136-145); TOT PROT 5.9 g/dl (6.4-8.2)
[2018-12-21] MEDS: SODIUM CHLORIDE 1,000 ML IV SCH (10:59)
[2018-12-21] MEDS: HEPARIN NA (PORCINE) 5,000 UNITS/ML 1ML VIAL SQ SCH ×2 (10:59→21:55)
[2018-12-21] MEDS: PANTOPRAZOLE SODIUM 40 MG VIAL IVPUSH SCH (11:00)
--- NOTE | 2018-12-21 12:13 | PN ---
Progress Note (short form) - Note Progress Note: No c/o pain wants to eat no diarrhea' Vital Signs - 24 hr 12/20/18 12/20/18 12/20/18 12:53 13:36 14:40 Temperature 98.3 F 98.8 F Pulse Rate 83 81 Respiratory 20 22 H Rate Blood Pressure 146/75 143/78 O2 Sat by Pulse 97 Oximetry (%) 12/20/18 12/20/18 12/20/18 18:00 21:00 22:00 Temperature 97.8 F 99.9 F H Pulse Rate 104 H 87 Respiratory 20 20 20 Rate Blood Pressure 147/71 149/62 O2 Sat by Pulse 97 Oximetry (%) 12/21/18 06:00 Temperature 98.1 F Pulse Rate 74 Respiratory 20 Rate Blood Pressure 146/68 O2 Sat by Pulse Oximetry (%) Current Medications Generic Name Dose Route Start Last Admin Trade Name Freq PRN Reason Stop Dose Admin Acetaminophen 500 mg 12/20/18 01:27 12/20/18 22:14 Tylenol - PO 500 mg Q6H PRN Administration PAIN Atorvastatin Calcium 10 mg 12/20/18 22:00 12/20/18 22:14 Lipitor - PO 10 mg HS YVETTE Administration Heparin Sodium (Porcine) 5,000 unit 12/20/18 22:00 12/21/18 10:59 Heparin - SQ 5,000 unit BID YVETTE Administration Sodium Chloride 1,000 mls @ 42 mls/hr 12/20/18 00:45 12/21/18 10:59 Normal Saline - IV 42 mls/hr ASDIR YVETTE Administration Pantoprazole Sodium 40 mg 12/21/18 10:00 12/21/18 11:00 Protonix Iv IVPUSH 40 mg DAILY VYETTE Administration Laboratory Results - last 24 hr 12/21/18 12/21/18 07:10 07:10 WBC 10.6 H RBC 3.51 L Hgb 10.8 Hct 30.9 L MCV 88.2 MCH 30.7 MCHC 34.8 RDW 14.8 Plt Count 144 MPV 8.6 Absolute Neuts (auto) 8.4 H Neutrophils % 78.8 Lymphocytes % 9.9 D Monocytes % 8.6 Eosinophils % 2.3 Basophils % 0.4 Nucleated RBC % 0 Sodium 140 Potassium 3.5 Chloride 107 Carbon Dioxide 27 Anion Gap 6 L BUN 16 Creatinine 1.2 Creat Clearance w eGFR 43.45 Random Glucose 83 Calcium 8.2 L Total Bilirubin 1.0 AST 13 L ALT 14 Alkaline Phosphatase 89 Total Protein 5.9 L Albumin 2.9 L S1 S2 RRR Lungs decreased Abd- soft ,NT No edema PLAN diverticulitis better will advance diet off antibiotics possible dc tomorrow if asymptomatic Problem List - Problems (1) Abdominal pain Code(s): R10.9 - UNSPECIFIED ABDOMINAL PAIN (2) Diarrhea Code(s): R19.7 - DIARRHEA, UNSPECIFIED (3) Diverticulitis Code(s): K57.92 - DVTRCLI OF INTEST, PART UNSP, W/O PERF OR ABSCESS W/O BLEED Qualifiers: Diverticulitis site: large intestine Diverticulitis bleeding: without bleeding Diverticulitis complication: without perforation or abscess Qualified Code(s): K57.32 - Diverticulitis of large intestine without perforation or abscess without bleeding (4) Hypertension Code(s): I10 - ESSENTIAL (PRIMARY) HYPERTENSION
--- NOTE | 2018-12-21 16:11 | PN ---
GI Progress Note Subjective: No acute events Left sided abdominal pain has resolved No rectal bleeding or diarrhea - Objective Vital Signs: Vital Signs Temperature 98.8 F 12/21/18 14:22 Pulse Rate 75 12/21/18 14:22 Respiratory Rate 20 12/21/18 14:22 Blood Pressure 151/69 12/21/18 14:22 O2 Sat by Pulse Oximetry (%) 97 12/20/18 21:00 Constitutional: Calm Cardiovascular: Yes: Regular Rate and Rhythm, Murmur (2/6 systolic murmur at the RSB>LSB) Respiratory: Yes: CTA Bilaterally Gastrointestinal Inspection: No: Distention ...Auscultate: Yes: Normoactive Bowel Sounds ...Palpate: No: Tenderness, Tenderness, Rebound Edema: No (No LE edema) Neurological: Yes: Alert Labs: CBC, BMP 12/21/18 07:10 12/21/18 07:10 - ....Imaging Cat Scan: Report Reviewed, Image Reviewed Problem List - Problems (1) Colitis Assessment/Plan: Staph Aureus in stool culture. Not usual infectious aget of the GI tract and with rectal bleeding / segmental left sided colitis noted on CT scan, suspect ischemic etiology Clinically improved Tolerating PO Outpatient follow-up if continued improvement If recurrent diarrhea, worsening abdominal pain, can have ID comment on culture finding Code(s): K52.9 - NONINFECTIVE GASTROENTERITIS AND COLITIS, UNSPECIFIED
[2018-12-21] MEDS: ATORVASTATIN CA 10 MG TABLET (FP) PO SCH (21:55)
[2018-12-22] MEDS: SODIUM CHLORIDE 1,000 ML IV SCH (06:00)
[2018-12-22] MEDS: HEPARIN NA (PORCINE) 5,000 UNITS/ML 1ML VIAL SQ SCH (10:14)
[2018-12-22] MEDS: PANTOPRAZOLE SODIUM 40 MG VIAL IVPUSH SCH (10:14)
[2018-12-22 12:10] VITALS: BP 147/72; PULSE 72; TEMP 98
--- NOTE | 2018-12-22 12:23 | DS ---
Physical Examination Vital Signs: Vital Signs Temperature 98.0 F 12/22/18 10:00 Pulse Rate 72 12/22/18 10:00 Respiratory Rate 18 12/22/18 10:00 Blood Pressure 147/72 12/22/18 10:00 O2 Sat by Pulse Oximetry (%) 95 12/21/18 21:00 Constitutional: Yes: No Distress, Calm Cardiovascular: Yes: Regular Rate and Rhythm Respiratory: Yes: CTA Bilaterally Gastrointestinal: Yes: Normal Bowel Sounds, Soft. No: Tenderness Edema: No Labs: CBC, BMP 12/21/18 07:10 12/21/18 07:10 Discharge Summary Reason For Visit: DIARRHEA,RECTAL HEMORRHAGE,ABDOMINAL PAIN Current Active Problems Abdominal pain (Acute) Colitis (Acute) Diarrhea (Acute) Rectal bleed (Acute) Hospital Course: Admitted for diverticulitis -- was started on iv antibiotics and then discontinued Seen by GI Feels well tolerating regular diet stable for dc home and follow up with GI Condition: Good - Instructions Referrals: Precious Coates MD [Primary Care Provider] - uJan Montesinos DO [Staff Physician] - Disposition: HOME - Home Medications Comprehensive Discharge Medication List: Ambulatory Orders Atorvastatin Ca [Lipitor] 10 mg PO HS #1 tablet 10/12/13 Ramipril [Altace] 10 mg PO DAILY #1 capsule 10/12/13 Aspirin [ASA -] 81 mg PO DAILY 06/25/16 Triamterene/Hydrochlorothiazid [Triamterene-Hctz 37.5-25 mg Tb] 1 each PO DAILY 06/26/16 Diltiazem HCl [Cartia Xt] 300 mg PO DAILY 07/27/17 Ranitidine HCl [Zantac] 150 mg PO BID 07/27/17
== END 2018-12-22 14:11 | disposition home or self-care (01) | DRG 392 ==
LOC: JER 18:50 → JERBED 22:11 → J5S 12-20 11:19
PROVIDERS: ADMIT Internal Medicine; ATTEND Internal Medicine
DX: K57.32 Diverticulitis of large intestine without perforation or abscess without bleeding (principal); J44.9 Chronic obstructive pulmonary disease, unspecified; K21.9 Gastro-esophageal reflux disease without esophagitis; K57.90 Diverticulosis of intestine, part unspecified, without perforation or abscess without bleeding; D35.00 Benign neoplasm of unspecified adrenal gland; K52.9 Noninfective gastroenteritis and colitis, unspecified; I25.10 Atherosclerotic heart disease of native coronary artery without angina pectoris; I12.9 Hypertensive chronic kidney disease with stage 1 through stage 4 chronic kidney disease, or unspecified chronic kidney disease; E78.00 Pure hypercholesterolemia, unspecified; N18.9 Chronic kidney disease, unspecified
CPT/HCPCS: 36415; 74176-TC; 80053; 81003; 81015; 82272; 82977; 83735; 83880; 84100; 85025; 85027; 87045; 87046; 87205; 87804; 93005; 93010; 99284-25; J0131; J1644; J7030

== ENCOUNTER 2019-06-08 15:26 | Emergency (ER) | payer OTHER ==
[2019-06-08 16:06] VITALS: BMI 44.1
--- NOTE | 2019-06-08 16:19 | PDOC ---
History of Present Illness - General Chief Complaint: Injury Stated Complaint: FALL Time Seen by Provider: 06/08/19 16:13 - History of Present Illness Initial Comments: 06/08/19 16:17 79 yo F with h/o HTN, CAD, COPD, CKD, PVD, who p/w left knee pain s/p mechanical fall. Patient reports ambulating at home with cane at approximately 2 :00 PM today, when her left knee buckled. Reports landing onto hardwood floor with left knee, and absent head/neck/back trauma, or LOC. Reports h/o ongoing left leg pain, and swelling, with whom she follows with vascular for at outside institution. Patiernt reports she was on the ground for 15 minutes, before she was up ambulating. Fall unwitnessed. Denies AC use. Patient denies ORDONEZ, vision change, palpitations, cough, wheezing, orthopena, PND , leg swelling/pain, N/V, F,C, CP, SOB, urinary complaints, hematuria, BPR, abdominal pain, diarrhea, constipation, lightheadedness, weakness, sensory changes. PMHx: as noted above ROS: as noted SHx: Distant smoking history x 6 years. Denies Etoh, IVDA, tobacco use Allergies: NKDA Past History - Past Medical History Allergies/Adverse Reactions: Allergies Allergy/AdvReac Type Severity Reaction Status Date / Time No Known Allergies Allergy Verified 12/19/18 19:00 Home Medications: Ambulatory Orders Atorvastatin Ca [Lipitor] 10 mg PO HS #1 tablet 10/12/13 Ramipril [Altace] 10 mg PO DAILY #1 capsule 10/12/13 Aspirin [ASA -] 81 mg PO DAILY 06/25/16 Triamterene/Hydrochlorothiazid [Triamterene-Hctz 37.5-25 mg Tb] 1 each PO DAILY 06/26/16 Diltiazem HCl [Cartia Xt] 300 mg PO DAILY 07/27/17 Ranitidine HCl [Zantac] 150 mg PO BID 07/27/17 Anemia: No Asthma: No Cancer: No Cardiac Disorders: No CVA: No COPD: Yes CHF: No Dementia: No Diabetes: No GI Disorders: Yes (gerd,diverticulitis) Disorders: Yes (prolapsed uterus) HTN: Yes Hypercholesterolemia: Yes Liver Disease: No Psychiatric Problems: Yes (depression) Seizures: No Thyroid Disease: No - Surgical History Abdominal Surgery: No Appendectomy: No Cardiac Surgery: No Cholecystectomy: No Lung Surgery: No Neurologic Surgery: No Orthopedic Surgery: No - Immunization History Immunization Up to Date: No - Suicide/Smoking/Psychosocial Hx Smoking Status: Yes Smoking History: Never smoked Have you smoked in the past 12 months: No Number of Cigarettes Smoked Daily: 0 If you are a former smoker, when did you quit?: 2016 Cigars Per Day: 0 'Breaking Loose' booklet given: 10/11/13 Hx Alcohol Use: No Drug/Substance Use Hx: No Substance Use Type: None Hx Substance Use Treatment: No Review of Systems - Review of Systems Comments:: 06/08/19 16:18 GENERAL/CONSTITUTIONAL: No fever or chills. No weakness. HEAD, EYES, EARS, NOSE AND THROAT: No change in vision. No ear pain or discharge. No sore throat. CARDIOVASCULAR: No chest pain or shortness of breath RESPIRATORY: No cough, wheezing, or hemoptysis. GASTROINTESTINAL: No nausea, vomiting, diarrhea or constipation. GENITOURINARY: No dysuria, frequency, or change in urination. MUSCULOSKELETAL: No joint or muscle swelling or pain. No neck or back pain. SKIN: No rash NEUROLOGIC: No headache, vertigo, loss of consciousness, or change in strength/ sensation. ENDOCRINE: No increased thirst. No abnormal weight change HEMATOLOGIC/LYMPHATIC: No anemia, easy bleeding, or history of blood clots. ALLERGIC/IMMUNOLOGIC: No hives or skin allergy. *Physical Exam - Vital Signs Last Vital Signs Temp Pulse Resp BP Pulse Ox 98.8 F 70 17 150/71 95 06/08/19 16:04 06/08/19 16:04 06/08/19 16:04 06/08/19 16:04 06/08/19 16:04 - Physical Exam Comments: 06/08/19 16:18 GENERAL: Awake, alert, and fully oriented, in no acute distress HEAD: No signs of trauma, normocephalic, atraumatic EYES: PERRLA, EOMI, sclera anicteric, conjunctiva clear ENT: Auricles normal inspection, hearing grossly normal, nares patent, oropharynx clear without exudates. Moist mucosa NECK: Normal ROM, supple, no lymphadenopathy, JVD, or masses LUNGS: No distress, speaks full sentences, clear to auscultation bilaterally HEART: Regular rate and rhythm, normal S1 and S2, no murmurs, rubs or gallops, peripheral pulses normal and equal bilaterally. ABDOMEN: Soft, nontender, normoactive bowel sounds. No guarding, no rebound. No masses EXTREMITIES : RLE internal rotation, absent limb length discrepancy. +LLE edema. Normal inspection, Normal range of motion. No clubbing or cyanosis. 2+ peripheral pulses symmetric throughout all 4 exts. KNEE: + Right knee/patellar ttp. NEUROLOGICAL: Cranial nerves II through XII grossly intact. Normal speech, normal gait, no focal sensorimotor deficits SKIN: Warm, Dry, normal turgor, no rashes or lesions noted Medical Decision Making - Medical Decision Making 06/08/19 16:18 79 yo F with h/o HTN, CAD, COPD, CKD, PVD, who p/w left knee pain s/p mechanical fall. Vitals wnl, AF, A&Ox3. Physical exam notable for right leg internal rotation. Absent length discrepancy. BL LE neurovascualrly intact. R/o hip fracture, dislocation. No evidence closed head injury, basilar skull fracture. C-spine neg per [facility]. Ed Course: 06/08/19 18:22 Pt. Declines analgesia CTH: No acute change. Chiari I malformation. 06/08/19 18:24 Left leg duplex : unremarkable Ambulatory with assistance Patient stable and endorsed to night team. Dr. Allen. Pending radiographic imaging. *DC/Admit/Observation/Transfer Diagnosis at time of Disposition: Leg pain, left Accident due to mechanical fall without injury Qualifiers: Encounter type: initial encounter Qualified Code(s): W19.XXXA - Unspecified fall, initial encounter - Discharge Dispostion Condition at time of disposition: Stable Decision to Admit order: No - Referrals Referrals: Precious Coates MD [Primary Care Provider] - - Patient Instructions Printed Discharge Instructions: How to Prevent Falls Additional Instructions: Please return to the emergency department with any new or worsening symptoms or concerns. Please follow up with your primary care physician within 72 hours. - Post Discharge Activity
--- NOTE | 2019-06-08 19:22 | PDOC ---
*Physical Exam - Vital Signs Last Vital Signs Temp Pulse Resp BP Pulse Ox 98.8 F 70 17 150/71 95 06/08/19 16:04 06/08/19 16:04 06/08/19 16:04 06/08/19 16:04 06/08/19 16:04 Medical Decision Making - Medical Decision Making 06/08/19 19:21 Pt signed out to nc by Dr. Ruiz. 79F s/p mechanical fall. Pending XR imaging. Pt noted to be ambulating without issues around ED. 06/08/19 20:36 XR negative on preliminary read. Will d/c with PCP and ortho f/u. *DC/Admit/Observation/Transfer Diagnosis at time of Disposition: Leg pain, left Accident due to mechanical fall without injury Qualifiers: Encounter type: initial encounter Qualified Code(s): W19.XXXA - Unspecified fall, initial encounter - Discharge Dispostion Condition at time of disposition: Stable Decision to Admit order: No - Referrals Referrals: Precious Coates MD [Primary Care Provider] - Pradip Emanuel DO [Staff Physician] - - Patient Instructions Printed Discharge Instructions: How to Prevent Falls Additional Instructions: Your ER visit is not complete until your follow up with your primary care physician. Please follow up with your primary care physician in 1-2 days. Please return to the ER if you have any signs or symptoms of chest pain, shortness of breath, uncontrollable fever, chills, nausea, vomiting, numbness, tingling, or weakness in any part of your body, changes in vision, or slurred speech. Please return to the ER if symptoms persist, worsen, or new symptoms arise. - Post Discharge Activity
[2019-06-08 20:52] VITALS: BP 135/72; PULSE 79; TEMP 98.1
== END 2019-06-08 20:52 | disposition home or self-care (01) ==
LOC: JER 15:26
DX: M79.605 Pain in left leg (principal); W18.39XA Other fall on same level, initial encounter; Y93.89 Activity, other specified; Y92.009 Unspecified place in unspecified non-institutional (private) residence as the place of occurrence of the external cause; I25.10 Atherosclerotic heart disease of native coronary artery without angina pectoris; J44.9 Chronic obstructive pulmonary disease, unspecified; I73.9 Peripheral vascular disease, unspecified; I13.10 Hypertensive heart and chronic kidney disease without heart failure, with stage 1 through stage 4 chronic kidney disease, or unspecified chronic kidney disease; N18.9 Chronic kidney disease, unspecified
CPT/HCPCS: 70450-TC; 73523-TC-FY; 73562-TC-LT-FY; 93971-TC; 99281-25

== ENCOUNTER 2021-01-03 10:30 | Emergency (ER) | payer OTHER ==
[2021-01-03 10:46] VITALS: BMI 24.3
[2021-01-03 12:25] LABS: BASO % 0.6 % (0-2.0); HEMATOCRIT 31.4 % (32.4-45.2); HEMOGLOBIN 10.8 GM/dL (10.7-15.3); LYMPH % 15.7 % (8-40); MCH 33.7 pg (25.7-33.7); MCHC 34.4 g/dl (32.0-36.0); MEAN CELL VOLUME 98.1 fl (80-96); MEAN PLT VOLUME 9.4 fl (7.5-11.1); MONO % 19.7 % (3.8-10.2); PLATELET COUNT 135 K/MM3 (134-434); RDW 14.6 % (11.6-15.6); WHITE BLOOD COUNT 4.3 K/mm3 (4.0-10.0)
[2021-01-03 12:41] LABS: POTASSIUM 4.3 mmol/L (3.5-5.1)
[2021-01-03 12:43] LABS: CALCIUM 9.3 mg/dL (8.5-10.1)
[2021-01-03 12:44] LABS: ALBUMIN 3.7 g/dl (3.4-5.0); BLOOD UREA NITROGEN 26.8 mg/dL (7-18)
[2021-01-03 12:47] LABS: CREATININE 1.5 mg/dL (0.55-1.3)
[2021-01-03 12:48] LABS: BILIRUBIN,TOTAL 0.8 mg/dL (0.2-1); TOT PROT 6.9 g/dl (6.4-8.2)
[2021-01-03 13:54] VITALS: BP 150/79; PULSE 89; TEMP 98.4
== END 2021-01-03 14:15 | disposition home or self-care (01) ==
LOC: JER 10:30
DX: R04.0 Epistaxis (principal)
CPT/HCPCS: 36415; 71046-TC-FY; 80053; 85025; 99284-25

== ENCOUNTER 2022-02-10 20:00 | Emergency (ER) | payer OTHER ==
[2022-02-10 20:56] VITALS: BP 122/70; PULSE 86; TEMP 97.7; BMI 27.6
[2022-02-10 21:53] LABS: EPITHELIAL CELLS RARE /hpf
== END 2022-02-10 21:15 | disposition left against medical advice (07) ==
LOC: FER 20:00
DX: N93.9 Abnormal uterine and vaginal bleeding, unspecified (principal)
CPT/HCPCS: 81003; 81015; 87077; 87086; 87186; 99283-25